=== PATIENT | male | born 1965 | race Caucasian/White ===

== ENCOUNTER 2017-07-02 17:33 | Emergency (ER) | payer OTHER ==
[~2017-07-02] VITALS: Ht 182.9 cm; Wt 93.1 kg
[2017-07-02] MEDS ORDERED: ONDANSETRON 2MG/ML, 2ML IVPush ONE (18:00)
[2017-07-02] MEDS ORDERED: SODIUM CHLORIDE FLUSH 10ML SYR IVF ONE (18:00)
[2017-07-02] MEDS ORDERED: MORPHINE SULFATE 4 MG/ML, 1ML IVPush PRN (18:00)
[2017-07-02] MEDS ORDERED: ONDANSETRON 2MG/ML, 2ML ONE (18:08)
[2017-07-02] MEDS ORDERED: MORPHINE SULFATE 4 MG/ML, 1ML ONE ×2 (18:08→19:10)
[2017-07-02 18:10] LABS: HEMATOCRIT 50.1 % (39.2-51.8); HEMOGLOBIN 16.8 g/dL (13.7-18.0); WHITE BLOOD COUNT 12.4 x10^3/uL (3.4-10)
[2017-07-02 18:22] LABS: BLOOD UREA NITROGEN 21 mg/dL (7-18)
[2017-07-02 18:27] LABS: IS PT STATUS REG ER OR PRE ER? YES
[2017-07-02] MEDS ORDERED: KETOROLAC 30 MG/1 ML ONE (19:42)
[2017-07-02] MEDS ORDERED: KETOROLAC 30 MG/1 ML IVPush ONE (20:00)
[2017-07-02] MEDS ORDERED: OMNIPAQUE 350 MG/ML, 75ML BOTTLE ONE (20:23)
[2017-07-02 21:39] VITALS: BP 118/67
== END 2017-07-02 21:48 | disposition home or self-care (01) ==
LOC: ED 18:20
DX: S29.011A Strain of muscle and tendon of front wall of thorax, initial encounter (principal); X58.XXXA Exposure to other specified factors, initial encounter; Y93.89 Activity, other specified; Y92.89 Other specified places as the place of occurrence of the external cause; Y99.9 Unspecified external cause status
CPT/HCPCS: 36415; 71010; 71260; 80048; 82040; 83880; 84484; 85025; 85379; 93005; 96374; 96375; 99285; J1885; J2405; Q9967

== ENCOUNTER 2018-07-11 07:31 | Day surgery (SDC) | payer OTHER ==
[~2018-07-11] VITALS: Ht 182.9 cm; Wt 87.2 kg
[2018-07-11] MEDS ORDERED: LACTATED RINGERS 1,000 ML IV SCH (07:52)
[2018-07-11 08:12] VITALS: BP 123/80
[2018-07-11] MEDS ORDERED: NONE PER PT (08:18)
[2018-07-11] MEDS ORDERED: FENTANYL PF 250 MCG/5ML ONE (09:06)
[2018-07-11] MEDS ORDERED: MIDAZOLAM 1 MG/ML, 2ML ONE (09:06)
[2018-07-11] MEDS ORDERED: KETOROLAC 30 MG/1 ML ONE (09:15)
[2018-07-11] MEDS ORDERED: PROPOFOL 10 MG/ML, 20ML ONE (09:15)
[2018-07-11] MEDS ORDERED: DEXAMETHASONE 4 MG/ML, 1ML ONE (09:15)
[2018-07-11] MEDS ORDERED: ONDANSETRON 2MG/ML, 2ML ONE (09:15)
[2018-07-11] MEDS ORDERED: LACTATED RINGERS 1,000 ML ONE (09:15)
[2018-07-11] MEDS ORDERED: LIDOCAINE 2% 100MG/5ML SYRINGE ONE (09:15)
[2018-07-11] MEDS ORDERED: CIPROFLOXACIN/PMX 400MG/200ML 200 ML ONE (09:25)
[2018-07-11] MEDS ORDERED: OPIUM/BELLADONNA SUPP.RECT 16.2-60 MG ONE (09:39)
[2018-07-11] MEDS ORDERED: OXYcodone/APAP 5/325MG TABLET PO PRN (10:00)
[2018-07-11] MEDS ORDERED: ONDANSETRON 2MG/ML, 2ML IV PRN (10:00)
[2018-07-11] MEDS ORDERED: HYDROmorphone 1 MG/ML, 1ML IV PRN (10:30)
[2018-07-11] MEDS ORDERED: MEPERIDINE/PF 25MG/0.5ML IVPush PRN (10:30)
[2018-07-11] MEDS ORDERED: LABETALOL 5MG/ML, 20ML IV PRN (10:30)
[2018-07-11] MEDS ORDERED: FENTANYL PF 100 MCG/2ML IV PRN (10:30)
[2018-07-11] MEDS ORDERED: hydrALAzine 20 MG/ML, 1ML IV PRN (10:30)
[2018-07-11] MEDS ORDERED: OXYcodone 5 MG/5 ML ORAL.SOL UDC PO PRN (10:30)
[2018-07-11] MEDS ORDERED: ALBUTEROL SULFATE 2.5 MG/3 ML NPPB PRN (10:30)
[2018-07-11] MEDS ORDERED: PROMETHAZINE 25 MG/ML, 1ML IV PRN (10:30)
[2018-07-11] MEDS ORDERED: LORazepam 2 MG/ML, 1ML IVPush PRN (10:30)
== END 2018-07-11 12:20 | disposition home or self-care (01) ==
LOC: OUT 07:31
PROVIDERS: ATTEND Urology
DX: N21.0 Calculus in bladder (principal)
CPT/HCPCS: 52318; 82360; 88300; J0744; J2250; J3010; J7120; J1100; J1885; J2405; J2704

== ENCOUNTER 2018-09-08 06:53 | Emergency (ER) | payer OTHER ==
[~2018-09-08] VITALS: Ht 182.9 cm; Wt 90.8 kg
[~2018-09-08 06:53] MED LIST: NONE PER PT
[2018-09-08 06:59] VITALS: BP 147/92
[2018-09-08] MEDS ORDERED: LIDOCAINE-MPF 1%, 5ML INFIL ONE (07:30)
[2018-09-08] MEDS ORDERED: LIDOCAINE-MPF 1%, 5ML ONE (07:44)
[2018-09-08] MEDS ORDERED: HYDROcodone/APAP 5/325 TABLET ONE (07:45)
[2018-09-08] MEDS ORDERED: HYDROcodone/APAP 5/325 TABLET PO ONE (08:00)
== END 2018-09-08 08:21 | disposition home or self-care (01) ==
LOC: ED 08:15
DX: L02.412 Cutaneous abscess of left axilla (principal); F17.210 Nicotine dependence, cigarettes, uncomplicated
CPT/HCPCS: 99283

== ENCOUNTER 2018-11-18 00:13 | Emergency (ER) | payer OTHER ==
[~2018-11-18] VITALS: Ht 182.9 cm; Wt 90.9 kg
[2018-11-18 00:16] VITALS: BP 170/123
[2018-11-18] MEDS ORDERED: METO5TAB57 PO (00:17)
[2018-11-18] MEDS ORDERED: HYDR-3343 PO (00:18)
[2018-11-18] MEDS ORDERED: ISOS30TA8 PO (00:18)
[2018-11-18] MEDS ORDERED: FURO20TA3 PO (00:19)
[2018-11-18] MEDS ORDERED: BUPIVACAINE 0.25% INFIL ONE (00:30)
[2018-11-18] MEDS ORDERED: LIDOCAINE-MPF 1%, 5ML INFIL ONE (00:30)
[2018-11-18] MEDS ORDERED: LIDOCAINE-MPF 1%, 5ML ONE (00:34)
[2018-11-18] MEDS ORDERED: BUPIVACAINE 0.25% ONE (00:34)
== END 2018-11-18 00:57 | disposition home or self-care (01) ==
LOC: ED 00:38
DX: K08.89 Other specified disorders of teeth and supporting structures (principal); F17.210 Nicotine dependence, cigarettes, uncomplicated
CPT/HCPCS: 99283